=== PATIENT | male | born 1955 | race Caucasian/White ===

== ENCOUNTER 2018-01-06 01:52 | Inpatient (IN) | payer MEDICAID ==
[2018-01-06] VITALS (13 sets, daily range): BP systolic 77–129; BP diastolic 60–74
[~2018-01-06] VITALS: Ht 170.2 cm; Wt 86.8 kg
[~2018-01-06 01:52] MED LIST: AMLO10TA PO; ASPI-611 PO; LISI1TAB13 PO; MECL-111 PO; ONDA8TAB9 PO; PANT-47 PO; SIMV40TA PO; SOTA80TA69 PO; TERA1CAP4 PO; WARF4TAB7 PO
[2018-01-06] MEDS ORDERED: normal saline 1000ML IV soln IVB ONE (02:15)
[2018-01-06] MEDS ORDERED: ondansetron/PF 4mg/2ml inj IV ONE (02:15)
[2018-01-06] MEDS ORDERED: morphine 2 MG/ML inj. syringe IV ONE (02:15)
[2018-01-06] MEDS ORDERED: iohexol 300mg/ml 100ml inj. ONE (02:26)
[2018-01-06 02:30] LABS: BASOPHILS % (AUTO) 0.1 % (0-1); EOSINOPHILS # (AUTO) 0.1 X10'3 (0-0.9); HEMATOCRIT 42.9 % (42.0-52.0); HEMOGLOBIN 14.9 g/dl (14.0-17.9); LYMPHOCYTES # (AUTO) 0.9 X10'3 (1.1-4.8); LYMPHOCYTES % (AUTO) 7.2 % (21-51); MEAN CORPUSCULAR HEMOGLOBIN 28.3 PG (27.0-31.0); MEAN CORPUSCULAR HGB CONC 34.7 % (33.0-36.5); MEAN CORPUSCULAR VOLUME 81.4 FL (78-98); MEAN PLATELET VOLUME 7.3 FL (7.4-10.4); MONOCYTES # (AUTO) 1.3 X10'3 (0-0.9); MONOCYTES % (AUTO) 10.1 % (2-12); NEUTROPHILS # (AUTO) 10.6 X10'3 (1.8-7.7); NEUTROPHILS % (AUTO) 81.6 % (42-75); PLATELET COUNT 249 X10'3 (140-440); RED BLOOD COUNT 5.26 X10'6 (4.70-6.10); WHITE BLOOD COUNT 13.1 X10'3 (4.5-11.0)
[2018-01-06 02:43] LABS: PARTIAL THROMBOPLASTIN TIME 27 SECONDS (22-32); PROTHROMBIN TIME 10.6 SECONDS (9.0-12.0)
[2018-01-06 02:47] LABS: ALANINE AMINOTRANSFERASE 198 U/L (12-78); ALBUMIN 4.1 G/DL (3.4-5.0); ALBUMIN/GLOBULIN RATIO 1.1 (1.1-1.5); ALKALINE PHOSPHATASE 88 IU/L (46-116); ANION GAP 13 (8-16); ASPARTATE AMINO TRANSFERASE 130 U/L (10-37); BILIRUBIN,TOTAL 0.9 MG/DL (0.1-1.0); BLOOD UREA NITROGEN 57 MG/DL (7-18); BUN/CREATININE RATIO 20.2 (5.4-32.0); CALCIUM 8.1 MG/DL (8.5-10.1); CHLORIDE 95 MMOL/L (99-107); CREATININE 2.82 MG/DL (0.60-1.10); GLUCOSE 150 MG/DL (70-104); LIPASE < 50 U/L (73-393); POTASSIUM 3.8 MMOL/L (3.5-5.1); SODIUM 133 MMOL/L (135-145); TOTAL CARBON DIOXIDE 24.6 MMOL/L (24-32); eGFR 23 ML/MIN
[2018-01-06 04:07] LABS: TOTAL CELLS COUNTED 100
[2018-01-06 04:08] LABS: PLATELET ESTIMATE NORMAL
[2018-01-06] MEDS ORDERED: normal saline 1000ml 1,000 ML IV ONE (05:15)
[2018-01-06] MEDS ORDERED: piperacillin/tazo 3.375gm/50ml 50 ML IV SCH ×2 (05:30→08:00)
[2018-01-06] MEDS ORDERED: APIX2.5T PO (05:37)
[2018-01-06] MEDS ORDERED: morphine 2 MG/ML inj. syringe IV PRN ×2 (06:20)
[2018-01-06] MEDS ORDERED: potassium Cl 40MEQ/NS 500ml 500 ML IV PRN ×2 (06:20)
[2018-01-06] MEDS ORDERED: magnesium 2GM in 50ml NS 50 ML IV PRN (06:20)
[2018-01-06] MEDS ORDERED: ondansetron/PF 4mg/2ml inj IV PRN (06:20)
[2018-01-06] MEDS ORDERED: magnesium 4gm in 100ml NS 100 ML IV PRN (06:20)
[2018-01-06] MEDS ORDERED: normal saline 500ml IV soln 500 ML IV ONE (06:35)
[2018-01-06] MEDS: normal saline 1000ml 1,000 ML IV SCH ×2 (06:36→19:40)
[2018-01-06] MEDS: piperacillin-tazo 2.25gm/50ml 50 ML IV SCH ×2 (08:30→16:36)
[2018-01-06] MEDS: pantoprazole 40 MG vial IV SCH (08:30)
[2018-01-06] MEDS ORDERED: CHOL100012 PO (12:28)
[2018-01-06] MEDS: lactobacillus rhamnosus 10,000 MMU CELLS/CAPSULE PO SCH (17:50)
[2018-01-06] MEDS ORDERED: diltiazem 5mg/ml 5ml inj. IV ONE (22:05)
[2018-01-06 23:04] LABS: BASOPHILS % (AUTO) 0.2 % (0-1); EOSINOPHILS # (AUTO) 0.2 X10'3 (0-0.9); EOSINOPHILS % (AUTO) 1.7 % (0-6); HEMATOCRIT 36.4 % (42.0-52.0); HEMOGLOBIN 12.5 g/dl (14.0-17.9); LYMPHOCYTES # (AUTO) 1.5 X10'3 (1.1-4.8); LYMPHOCYTES % (AUTO) 14.3 % (21-51); MEAN CORPUSCULAR HEMOGLOBIN 28.3 PG (27.0-31.0); MEAN CORPUSCULAR HGB CONC 34.3 % (33.0-36.5); MEAN CORPUSCULAR VOLUME 82.5 FL (78-98); MEAN PLATELET VOLUME 7.6 FL (7.4-10.4); MONOCYTES # (AUTO) 1.4 X10'3 (0-0.9); MONOCYTES % (AUTO) 13.6 % (2-12); NEUTROPHILS # (AUTO) 7.4 X10'3 (1.8-7.7); NEUTROPHILS % (AUTO) 70.2 % (42-75); PLATELET COUNT 194 X10'3 (140-440); RED BLOOD COUNT 4.41 X10'6 (4.70-6.10); RED CELL DISTRIBUTION WIDTH 14.1 % (11.5-14.5); WHITE BLOOD COUNT 10.5 X10'3 (4.5-11.0)
[2018-01-06 23:24] LABS: ALANINE AMINOTRANSFERASE 121 U/L (12-78); ALBUMIN 3.1 G/DL (3.4-5.0); ALBUMIN/GLOBULIN RATIO 0.9 (1.1-1.5); ALKALINE PHOSPHATASE 69 IU/L (46-116); ANION GAP 15 (8-16); ASPARTATE AMINO TRANSFERASE 55 U/L (10-37); BILIRUBIN,TOTAL 0.9 MG/DL (0.1-1.0); BLOOD UREA NITROGEN 34 MG/DL (7-18); BUN/CREATININE RATIO 27.4 (5.4-32.0); CALCIUM 7.7 MG/DL (8.5-10.1); CHLORIDE 106 MMOL/L (99-107); CREATININE 1.24 MG/DL (0.60-1.10); GLUCOSE 77 MG/DL (70-104); MAGNESIUM 2.1 MG/DL (1.5-2.4); POTASSIUM 3.6 MMOL/L (3.5-5.1); SODIUM 142 MMOL/L (135-145); TOTAL CARBON DIOXIDE 21.3 MMOL/L (24-32); TOTAL PROTEIN 6.4 G/DL (6.4-8.2); TROPONIN I < 0.04 NG/ML (0.0-0.05); eGFR 59 ML/MIN
[2018-01-06] MEDS ORDERED: albumin (human) 25% 100 ML IV solution IV ONE (23:30)
[2018-01-06] MEDS ORDERED: metoprolol tartrate 1mg/ml inj IV ONE (23:30)
[2018-01-07] VITALS (29 sets, daily range): BP systolic 91–145; BP diastolic 52–91
[2018-01-07] MEDS: piperacillin-tazo 2.25gm/50ml 50 ML IV SCH ×5 (00:29→20:52)
[2018-01-07] MEDS ORDERED: albumin (Human) 5% 250 ML IV solution IV STA (02:14)
[2018-01-07] MEDS ORDERED: diltiazem 5mg/ml 5ml inj. IV ONE (03:15)
[2018-01-07] MEDS ORDERED: dextrose 50%-water 50ml dispensing syringe IV ONE ×2 (04:14→04:15)
[2018-01-07] MEDS ORDERED: ringers solution, lacted 1,000 ML IV SCH (04:59)
[2018-01-07] MEDS ORDERED: morphine 2 MG/ML inj. syringe IV PRN ×2 (05:00)
[2018-01-07] MEDS ORDERED: labetalol 5mg/ml 20ml inj. IV PRN (05:00)
[2018-01-07] MEDS ORDERED: hydrALAZINE 20mg/ml inj. IV PRN (05:00)
[2018-01-07] MEDS ORDERED: fentaNYL/PF 50MCG/1 ML 2ML syringe IV PRN ×2 (05:00)
[2018-01-07] MEDS ORDERED: ondansetron/PF 4mg/2ml inj IV PRN (05:00)
[2018-01-07 05:18] LABS: BASOPHILS % (AUTO) 0.1 % (0-1); EOSINOPHILS # (AUTO) 0.2 X10'3 (0-0.9); EOSINOPHILS % (AUTO) 2.4 % (0-6); HEMATOCRIT 32.3 % (42.0-52.0); HEMOGLOBIN 11.2 g/dl (14.0-17.9); LYMPHOCYTES # (AUTO) 1.3 X10'3 (1.1-4.8); LYMPHOCYTES % (AUTO) 16.1 % (21-51); MEAN CORPUSCULAR HEMOGLOBIN 28.7 PG (27.0-31.0); MEAN CORPUSCULAR HGB CONC 34.6 % (33.0-36.5); MEAN CORPUSCULAR VOLUME 82.8 FL (78-98); MEAN PLATELET VOLUME 7.4 FL (7.4-10.4); MONOCYTES # (AUTO) 0.9 X10'3 (0-0.9); MONOCYTES % (AUTO) 11.1 % (2-12); NEUTROPHILS # (AUTO) 5.6 X10'3 (1.8-7.7); NEUTROPHILS % (AUTO) 70.3 % (42-75); PLATELET COUNT 178 X10'3 (140-440); RED CELL DISTRIBUTION WIDTH 14.2 % (11.5-14.5)
[2018-01-07 05:22] LABS: PARTIAL THROMBOPLASTIN TIME 29 SECONDS (22-32); PROTHROMBIN TIME 10.7 SECONDS (9.0-12.0)
[2018-01-07 05:25] LABS: ALANINE AMINOTRANSFERASE 93 U/L (12-78); ALBUMIN 3.6 G/DL (3.4-5.0); ALBUMIN/GLOBULIN RATIO 1.3 (1.1-1.5); ALKALINE PHOSPHATASE 58 IU/L (46-116); ANION GAP 12 (8-16); ASPARTATE AMINO TRANSFERASE 37 U/L (10-37); BLOOD UREA NITROGEN 29 MG/DL (7-18); CALCIUM 7.8 MG/DL (8.5-10.1); CHLORIDE 104 MMOL/L (99-107); CREATININE 1.26 MG/DL (0.60-1.10); GLUCOSE 180 MG/DL (70-104); POTASSIUM 3.9 MMOL/L (3.5-5.1); SODIUM 140 MMOL/L (135-145); TOTAL PROTEIN 6.4 G/DL (6.4-8.2); eGFR 58 ML/MIN
[2018-01-07] MEDS ORDERED: piperacillin-tazo 2.25gm/50ml 50 ML IV ONE (06:00)
[2018-01-07] MEDS ORDERED: ondansetron/PF 4mg/2ml inj ONE (06:30)
[2018-01-07] MEDS ORDERED: glycopyrrolate 0.2mg/ml inj ONE (06:30)
[2018-01-07] MEDS ORDERED: dexamethasone sod phosphate 4mg/ml inj. ONE (06:30)
[2018-01-07] MEDS ORDERED: neostigmine methylsulfate 1 MG/ML 10ml vial ONE (06:30)
[2018-01-07] MEDS ORDERED: sevoflurane 250ml liquid IH ONE (06:30)
[2018-01-07] MEDS: lactobacillus rhamnosus 10,000 MMU CELLS/CAPSULE PO SCH ×2 (07:30→17:04)
[2018-01-07] MEDS: pantoprazole 40 MG vial IV SCH (08:08)
[2018-01-07] MEDS: normal saline 1000ml 1,000 ML IV SCH ×2 (08:09→20:50)
[2018-01-07] MEDS ORDERED: morphine 4 MG/ML inj SYRINge ONE (08:29)
[2018-01-07] MEDS ORDERED: amiodarone 150mg/dext, iso-os 100 ML IV ONE (11:05)
[2018-01-07] MEDS: morphine/NS 5 mg/ml CADD 50 ML IV SCH ×4 (11:34→23:44)
[2018-01-07] MEDS: amiodarone/D5 360MG/200ML BAG 200 ML IV SCH ×2 (12:10→12:47)
[2018-01-08] VITALS (22 sets, daily range): BP systolic 96–139; BP diastolic 65–90
[2018-01-08] MEDS: piperacillin-tazo 2.25gm/50ml 50 ML IV SCH ×4 (04:21→22:13)
[2018-01-08 06:33] LABS: BASOPHILS % (AUTO) 0.2 % (0-1); EOSINOPHILS # (AUTO) 0.1 X10'3 (0-0.9); HEMATOCRIT 32.6 % (42.0-52.0); LYMPHOCYTES # (AUTO) 1.1 X10'3 (1.1-4.8); LYMPHOCYTES % (AUTO) 12.3 % (21-51); MEAN CORPUSCULAR HGB CONC 33.7 % (33.0-36.5); MEAN CORPUSCULAR VOLUME 83.3 FL (78-98); MEAN PLATELET VOLUME 7.7 FL (7.4-10.4); MONOCYTES # (AUTO) 1.1 X10'3 (0-0.9); MONOCYTES % (AUTO) 12.3 % (2-12); NEUTROPHILS # (AUTO) 6.5 X10'3 (1.8-7.7); NEUTROPHILS % (AUTO) 74.2 % (42-75); PLATELET COUNT 206 X10'3 (140-440); RED BLOOD COUNT 3.91 X10'6 (4.70-6.10); WHITE BLOOD COUNT 8.8 X10'3 (4.5-11.0)
[2018-01-08 06:40] LABS: PARTIAL THROMBOPLASTIN TIME 28 SECONDS (22-32); PROTHROMBIN TIME 10.5 SECONDS (9.0-12.0)
[2018-01-08 06:45] LABS: ALANINE AMINOTRANSFERASE 78 U/L (12-78); ALBUMIN 3.2 G/DL (3.4-5.0); ALKALINE PHOSPHATASE 67 IU/L (46-116); ANION GAP 9 (8-16); ASPARTATE AMINO TRANSFERASE 32 U/L (10-37); BILIRUBIN,TOTAL 0.6 MG/DL (0.1-1.0); BLOOD UREA NITROGEN 17 MG/DL (7-18); BUN/CREATININE RATIO 19.3 (5.4-32.0); CALCIUM 7.9 MG/DL (8.5-10.1); CHLORIDE 105 MMOL/L (99-107); CREATININE 0.88 MG/DL (0.60-1.10); GLUCOSE 125 MG/DL (70-104); POTASSIUM 3.9 MMOL/L (3.5-5.1); SODIUM 139 MMOL/L (135-145); TOTAL CARBON DIOXIDE 25.3 MMOL/L (24-32); TOTAL PROTEIN 6.4 G/DL (6.4-8.2); eGFR 88 ML/MIN
[2018-01-08] MEDS: lactobacillus rhamnosus 10,000 MMU CELLS/CAPSULE PO SCH ×2 (07:28→20:11)
[2018-01-08] MEDS: pantoprazole 40mg Tablet.DR PO SCH (07:28)
[2018-01-08] MEDS: vitamin D (cholecalciferol) 1,000 unit tablet PO SCH (08:00)
[2018-01-08] MEDS ORDERED: amiodarone 200mg tablet PO SCH (09:20)
[2018-01-08] MEDS: amiodarone/D5 360MG/200ML BAG 200 ML IV SCH (09:24)
[2018-01-08] MEDS: lisinopril 20mg tablet PO SCH (09:25)
[2018-01-08] MEDS: HYDROchlorothiazide 25mg tablet PO SCH (09:25)
[2018-01-08] MEDS ORDERED: sotalol 80mg tablet PO ONE (09:30)
[2018-01-08] MEDS ORDERED: sotalol 80mg tablet PO SCH (09:30)
[2018-01-08] MEDS: normal saline 1000ml 1,000 ML IV SCH (12:15)
[2018-01-08] MEDS ORDERED: apixaban 5mg tablet PO SCH (20:00)
[2018-01-08] MEDS: sotalol 80mg tablet PO SCH (20:11)
[2018-01-08] MEDS: morphine/NS 5 mg/ml CADD 50 ML IV SCH ×2 (21:00→23:00)
[2018-01-08] MEDS: amLODIPine 5mg tablet PO SCH (22:14)
[2018-01-08] MEDS: Terazosin 1mg capsule PO SCH (22:14)
[2018-01-09] VITALS: BP 115/86
[2018-01-09] MEDS: morphine/NS 5 mg/ml CADD 50 ML IV SCH ×12 (01:00→23:00)
[2018-01-09] MEDS: normal saline 1000ml 1,000 ML IV SCH ×2 (02:16→14:20)
[2018-01-09] MEDS: piperacillin-tazo 2.25gm/50ml 50 ML IV SCH ×4 (02:49→20:27)
[2018-01-09 06:00] LABS: BASOPHILS % (AUTO) 0.1 % (0-1); EOSINOPHILS # (AUTO) 0.2 X10'3 (0-0.9); EOSINOPHILS % (AUTO) 2.7 % (0-6); HEMATOCRIT 33.1 % (42.0-52.0); HEMOGLOBIN 11.4 g/dl (14.0-17.9); LYMPHOCYTES # (AUTO) 1.5 X10'3 (1.1-4.8); LYMPHOCYTES % (AUTO) 17.3 % (21-51); MEAN CORPUSCULAR HEMOGLOBIN 28.4 PG (27.0-31.0); MEAN CORPUSCULAR HGB CONC 34.4 % (33.0-36.5); MEAN CORPUSCULAR VOLUME 82.5 FL (78-98); MEAN PLATELET VOLUME 7.6 FL (7.4-10.4); MONOCYTES # (AUTO) 1.1 X10'3 (0-0.9); NEUTROPHILS # (AUTO) 5.9 X10'3 (1.8-7.7); NEUTROPHILS % (AUTO) 66.9 % (42-75); PLATELET COUNT 232 X10'3 (140-440); RED BLOOD COUNT 4.02 X10'6 (4.70-6.10); RED CELL DISTRIBUTION WIDTH 13.9 % (11.5-14.5); WHITE BLOOD COUNT 8.8 X10'3 (4.5-11.0)
[2018-01-09 06:50] LABS: PARTIAL THROMBOPLASTIN TIME 28 SECONDS (22-32); PROTHROMBIN TIME 10.2 SECONDS (9.0-12.0)
[2018-01-09 06:57] LABS: ALANINE AMINOTRANSFERASE 74 U/L (12-78); ALBUMIN/GLOBULIN RATIO 0.9 (1.1-1.5); ALKALINE PHOSPHATASE 69 IU/L (46-116); ANION GAP 10 (8-16); ASPARTATE AMINO TRANSFERASE 44 U/L (10-37); BILIRUBIN,TOTAL 0.8 MG/DL (0.1-1.0); BLOOD UREA NITROGEN 13 MG/DL (7-18); BUN/CREATININE RATIO 14.3 (5.4-32.0); CALCIUM 8.3 MG/DL (8.5-10.1); CHLORIDE 102 MMOL/L (99-107); CREATININE 0.91 MG/DL (0.60-1.10); GLUCOSE 89 MG/DL (70-104); POTASSIUM 3.4 MMOL/L (3.5-5.1); SODIUM 138 MMOL/L (135-145); TOTAL CARBON DIOXIDE 25.9 MMOL/L (24-32); TOTAL PROTEIN 6.4 G/DL (6.4-8.2); eGFR 85 ML/MIN
[2018-01-09 07:23] VITALS: BP 114/70
[2018-01-09] MEDS: sotalol 80mg tablet PO SCH ×2 (07:56→20:27)
[2018-01-09] MEDS: lisinopril 20mg tablet PO SCH (08:03)
[2018-01-09] MEDS: HYDROchlorothiazide 25mg tablet PO SCH (08:03)
[2018-01-09] MEDS: pantoprazole 40mg Tablet.DR PO SCH (08:04)
[2018-01-09] MEDS: lactobacillus rhamnosus 10,000 MMU CELLS/CAPSULE PO SCH ×2 (08:04→20:28)
[2018-01-09] MEDS: vitamin D (cholecalciferol) 1,000 unit tablet PO SCH (08:04)
[2018-01-09 11:32] VITALS: BP 107/73
[2018-01-09] MEDS ORDERED: potassium Cl 20 mEq SR tablet PO PRN ×2 (19:00)
[2018-01-09 20:00] VITALS: BP 136/88
[2018-01-09] MEDS: amLODIPine 5mg tablet PO SCH (22:39)
[2018-01-09] MEDS: Terazosin 1mg capsule PO SCH (22:39)
[2018-01-10] VITALS: BP 141/91
[2018-01-10] MEDS: morphine/NS 5 mg/ml CADD 50 ML IV SCH ×12 (01:00→23:00)
[2018-01-10] MEDS: piperacillin-tazo 2.25gm/50ml 50 ML IV SCH ×4 (02:45→21:11)
[2018-01-10] MEDS: normal saline 1000ml 1,000 ML IV SCH ×2 (05:45→17:00)
[2018-01-10 05:51] LABS: BASOPHILS # (AUTO) 0.1 X10'3 (0-0.2); BASOPHILS % (AUTO) 0.8 % (0-1); EOSINOPHILS # (AUTO) 0.3 X10'3 (0-0.9); EOSINOPHILS % (AUTO) 3.7 % (0-6); HEMATOCRIT 36.1 % (42.0-52.0); HEMOGLOBIN 12.2 g/dl (14.0-17.9); LYMPHOCYTES # (AUTO) 1.6 X10'3 (1.1-4.8); LYMPHOCYTES % (AUTO) 16.7 % (21-51); MEAN CORPUSCULAR HEMOGLOBIN 28.2 PG (27.0-31.0); MEAN CORPUSCULAR HGB CONC 33.9 % (33.0-36.5); MEAN CORPUSCULAR VOLUME 83.3 FL (78-98); MEAN PLATELET VOLUME 7.5 FL (7.4-10.4); MONOCYTES % (AUTO) 10.9 % (2-12); NEUTROPHILS # (AUTO) 6.3 X10'3 (1.8-7.7); NEUTROPHILS % (AUTO) 67.9 % (42-75); PLATELET COUNT 257 X10'3 (140-440); RED BLOOD COUNT 4.33 X10'6 (4.70-6.10); RED CELL DISTRIBUTION WIDTH 13.6 % (11.5-14.5); WHITE BLOOD COUNT 9.4 X10'3 (4.5-11.0)
[2018-01-10 06:17] LABS: PARTIAL THROMBOPLASTIN TIME 28 SECONDS (22-32); PROTHROMBIN TIME 10.2 SECONDS (9.0-12.0)
[2018-01-10 06:33] LABS: ALANINE AMINOTRANSFERASE 92 U/L (12-78); ALBUMIN 2.8 G/DL (3.4-5.0); ALBUMIN/GLOBULIN RATIO 0.8 (1.1-1.5); ALKALINE PHOSPHATASE 81 IU/L (46-116); ANION GAP 14 (8-16); ASPARTATE AMINO TRANSFERASE 48 U/L (10-37); BILIRUBIN,TOTAL 0.7 MG/DL (0.1-1.0); BLOOD UREA NITROGEN 13 MG/DL (7-18); BUN/CREATININE RATIO 15.9 (5.4-32.0); CALCIUM 8.5 MG/DL (8.5-10.1); CHLORIDE 102 MMOL/L (99-107); CREATININE 0.82 MG/DL (0.60-1.10); GLUCOSE 89 MG/DL (70-104); POTASSIUM 3.6 MMOL/L (3.5-5.1); SODIUM 140 MMOL/L (135-145); TOTAL CARBON DIOXIDE 24.2 MMOL/L (24-32); TOTAL PROTEIN 6.4 G/DL (6.4-8.2); eGFR > 90 ML/MIN
[2018-01-10 07:05] VITALS: BP 114/78
[2018-01-10] MEDS: sotalol 80mg tablet PO SCH ×2 (07:43→21:12)
[2018-01-10] MEDS: lactobacillus rhamnosus 10,000 MMU CELLS/CAPSULE PO SCH ×2 (07:43→21:12)
[2018-01-10] MEDS: lisinopril 20mg tablet PO SCH (07:44)
[2018-01-10] MEDS: HYDROchlorothiazide 25mg tablet PO SCH (07:44)
[2018-01-10] MEDS: pantoprazole 40mg Tablet.DR PO SCH (07:44)
[2018-01-10] MEDS: vitamin D (cholecalciferol) 1,000 unit tablet PO SCH (07:44)
[2018-01-10 18:30] VITALS: BP 126/76
[2018-01-10 22:20] VITALS: BP 107/73
[2018-01-10] MEDS: Terazosin 1mg capsule PO SCH (22:28)
[2018-01-10] MEDS: amLODIPine 5mg tablet PO SCH (22:30)
[2018-01-10] MEDS: LACTOSE-FREE FOOD (BOOST BREEZE) 237ML PO SCH ×2 (23:19→23:20)
[2018-01-11] VITALS: BP 125/79
[2018-01-11] MEDS: morphine/NS 5 mg/ml CADD 50 ML IV SCH ×12 (01:00→23:00)
[2018-01-11] MEDS: piperacillin-tazo 2.25gm/50ml 50 ML IV SCH ×2 (02:45→07:43)
[2018-01-11 07:04] VITALS: BP 107/70
[2018-01-11 07:56] LABS: BASOPHILS # (AUTO) 0.1 X10'3 (0-0.2); BASOPHILS % (AUTO) 0.5 % (0-1); EOSINOPHILS # (AUTO) 0.4 X10'3 (0-0.9); EOSINOPHILS % (AUTO) 4.5 % (0-6); HEMATOCRIT 35.5 % (42.0-52.0); LYMPHOCYTES # (AUTO) 1.6 X10'3 (1.1-4.8); LYMPHOCYTES % (AUTO) 16.9 % (21-51); MEAN CORPUSCULAR HEMOGLOBIN 28.1 PG (27.0-31.0); MEAN CORPUSCULAR HGB CONC 33.7 % (33.0-36.5); MEAN CORPUSCULAR VOLUME 83.2 FL (78-98); MEAN PLATELET VOLUME 7.3 FL (7.4-10.4); MONOCYTES % (AUTO) 10.4 % (2-12); NEUTROPHILS # (AUTO) 6.5 X10'3 (1.8-7.7); NEUTROPHILS % (AUTO) 67.7 % (42-75); PLATELET COUNT 292 X10'3 (140-440); RED BLOOD COUNT 4.27 X10'6 (4.70-6.10); RED CELL DISTRIBUTION WIDTH 13.6 % (11.5-14.5); WHITE BLOOD COUNT 9.6 X10'3 (4.5-11.0)
[2018-01-11] MEDS: LACTOSE-FREE FOOD (BOOST BREEZE) 237ML PO SCH ×3 (08:00→17:54)
[2018-01-11 08:07] LABS: PARTIAL THROMBOPLASTIN TIME 28 SECONDS (22-32); PROTHROMBIN TIME 10.4 SECONDS (9.0-12.0)
[2018-01-11] MEDS: pantoprazole 40mg Tablet.DR PO SCH (08:12)
[2018-01-11] MEDS: lactobacillus rhamnosus 10,000 MMU CELLS/CAPSULE PO SCH ×2 (08:13→20:14)
[2018-01-11] MEDS: sotalol 80mg tablet PO SCH ×2 (08:13→20:14)
[2018-01-11] MEDS: lisinopril 20mg tablet PO SCH (08:14)
[2018-01-11] MEDS: HYDROchlorothiazide 25mg tablet PO SCH (08:14)
[2018-01-11] MEDS: vitamin D (cholecalciferol) 1,000 unit tablet PO SCH (08:14)
[2018-01-11] MEDS: normal saline 1000ml 1,000 ML IV SCH ×2 (08:15→17:54)
[2018-01-11 08:19] LABS: ALANINE AMINOTRANSFERASE 89 U/L (12-78); ALBUMIN 2.7 G/DL (3.4-5.0); ALBUMIN/GLOBULIN RATIO 0.7 (1.1-1.5); ALKALINE PHOSPHATASE 93 IU/L (46-116); ANION GAP 12 (8-16); ASPARTATE AMINO TRANSFERASE 38 U/L (10-37); BILIRUBIN,TOTAL 0.7 MG/DL (0.1-1.0); BLOOD UREA NITROGEN 12 MG/DL (7-18); BUN/CREATININE RATIO 14.3 (5.4-32.0); CALCIUM 8.5 MG/DL (8.5-10.1); CHLORIDE 102 MMOL/L (99-107); CREATININE 0.84 MG/DL (0.60-1.10); GLUCOSE 81 MG/DL (70-104); POTASSIUM 3.9 MMOL/L (3.5-5.1); SODIUM 139 MMOL/L (135-145); TOTAL CARBON DIOXIDE 24.9 MMOL/L (24-32); TOTAL PROTEIN 6.4 G/DL (6.4-8.2); eGFR > 90 ML/MIN
[2018-01-11 11:43] VITALS: BP 112/72
[2018-01-11] MEDS: Terazosin 1mg capsule PO SCH (20:57)
[2018-01-11] MEDS: amLODIPine 5mg tablet PO SCH (20:57)
[2018-01-12] VITALS: BP 142/84
[2018-01-12] MEDS: morphine/NS 5 mg/ml CADD 50 ML IV SCH ×12 (01:00→23:00)
[2018-01-12 02:50] VITALS: BP 116/74
[2018-01-12 06:34] LABS: BASOPHILS % (AUTO) 0.4 % (0-1); EOSINOPHILS # (AUTO) 0.4 X10'3 (0-0.9); EOSINOPHILS % (AUTO) 3.7 % (0-6); HEMOGLOBIN 12.2 g/dl (14.0-17.9); LYMPHOCYTES # (AUTO) 1.6 X10'3 (1.1-4.8); LYMPHOCYTES % (AUTO) 16.5 % (21-51); MEAN CORPUSCULAR HEMOGLOBIN 28.5 PG (27.0-31.0); MEAN CORPUSCULAR VOLUME 81.6 FL (78-98); MEAN PLATELET VOLUME 6.9 FL (7.4-10.4); MONOCYTES # (AUTO) 0.9 X10'3 (0-0.9); MONOCYTES % (AUTO) 9.4 % (2-12); NEUTROPHILS # (AUTO) 6.9 X10'3 (1.8-7.7); PLATELET COUNT 309 X10'3 (140-440); RED BLOOD COUNT 4.29 X10'6 (4.70-6.10); RED CELL DISTRIBUTION WIDTH 13.6 % (11.5-14.5); WHITE BLOOD COUNT 9.8 X10'3 (4.5-11.0)
[2018-01-12 06:39] LABS: PARTIAL THROMBOPLASTIN TIME 29 SECONDS (22-32); PROTHROMBIN TIME 10.7 SECONDS (9.0-12.0)
[2018-01-12 06:51] LABS: ALANINE AMINOTRANSFERASE 71 U/L (12-78); ALBUMIN 2.8 G/DL (3.4-5.0); ALBUMIN/GLOBULIN RATIO 0.7 (1.1-1.5); ALKALINE PHOSPHATASE 96 IU/L (46-116); ANION GAP 9 (8-16); ASPARTATE AMINO TRANSFERASE 30 U/L (10-37); BILIRUBIN,TOTAL 0.5 MG/DL (0.1-1.0); BLOOD UREA NITROGEN 10 MG/DL (7-18); CALCIUM 8.7 MG/DL (8.5-10.1); CHLORIDE 103 MMOL/L (99-107); CREATININE 0.83 MG/DL (0.60-1.10); GLUCOSE 95 MG/DL (70-104); POTASSIUM 3.9 MMOL/L (3.5-5.1); SODIUM 139 MMOL/L (135-145); TOTAL CARBON DIOXIDE 26.9 MMOL/L (24-32); TOTAL PROTEIN 6.6 G/DL (6.4-8.2); eGFR > 90 ML/MIN
[2018-01-12 07:00] VITALS: BP 119/81
[2018-01-12] MEDS: lisinopril 20mg tablet PO SCH (07:34)
[2018-01-12] MEDS: pantoprazole 40mg Tablet.DR PO SCH (07:34)
[2018-01-12] MEDS: sotalol 80mg tablet PO SCH ×2 (07:34→20:54)
[2018-01-12] MEDS: lactobacillus rhamnosus 10,000 MMU CELLS/CAPSULE PO SCH ×2 (07:34→20:55)
[2018-01-12] MEDS: vitamin D (cholecalciferol) 1,000 unit tablet PO SCH (07:34)
[2018-01-12] MEDS: HYDROchlorothiazide 25mg tablet PO SCH (07:34)
[2018-01-12] MEDS: LACTOSE-FREE FOOD (BOOST BREEZE) 237ML PO SCH ×3 (07:39→18:01)
[2018-01-12] MEDS: normal saline 1000ml 1,000 ML IV SCH (10:42)
[2018-01-12 11:00] VITALS: BP 114/75
[2018-01-12 18:00] VITALS: BP 117/73
[2018-01-12] MEDS: Terazosin 1mg capsule PO SCH (20:55)
[2018-01-12] MEDS: amLODIPine 5mg tablet PO SCH (20:56)
[2018-01-13] VITALS: BP 123/70
[2018-01-13] MEDS: morphine/NS 5 mg/ml CADD 50 ML IV SCH ×12 (01:00→23:00)
[2018-01-13] MEDS: normal saline 1000ml 1,000 ML IV SCH (03:11)
[2018-01-13 06:21] LABS: BASOPHILS % (AUTO) 0.3 % (0-1); EOSINOPHILS # (AUTO) 0.4 X10'3 (0-0.9); EOSINOPHILS % (AUTO) 3.8 % (0-6); HEMATOCRIT 34.7 % (42.0-52.0); HEMOGLOBIN 12.1 g/dl (14.0-17.9); LYMPHOCYTES % (AUTO) 21.2 % (21-51); MEAN CORPUSCULAR HEMOGLOBIN 28.5 PG (27.0-31.0); MEAN CORPUSCULAR HGB CONC 34.9 % (33.0-36.5); MEAN CORPUSCULAR VOLUME 81.6 FL (78-98); MEAN PLATELET VOLUME 6.9 FL (7.4-10.4); NEUTROPHILS # (AUTO) 5.9 X10'3 (1.8-7.7); NEUTROPHILS % (AUTO) 63.7 % (42-75); PLATELET COUNT 332 X10'3 (140-440); RED BLOOD COUNT 4.25 X10'6 (4.70-6.10); RED CELL DISTRIBUTION WIDTH 13.8 % (11.5-14.5); WHITE BLOOD COUNT 9.2 X10'3 (4.5-11.0)
[2018-01-13 06:23] LABS: PARTIAL THROMBOPLASTIN TIME 29 SECONDS (22-32); PROTHROMBIN TIME 10.6 SECONDS (9.0-12.0)
[2018-01-13 06:45] LABS: ALANINE AMINOTRANSFERASE 66 U/L (12-78); ALBUMIN 2.8 G/DL (3.4-5.0); ALBUMIN/GLOBULIN RATIO 0.7 (1.1-1.5); ALKALINE PHOSPHATASE 91 IU/L (46-116); ANION GAP 11 (8-16); ASPARTATE AMINO TRANSFERASE 24 U/L (10-37); BILIRUBIN,TOTAL 0.4 MG/DL (0.1-1.0); BLOOD UREA NITROGEN 11 MG/DL (7-18); BUN/CREATININE RATIO 12.8 (5.4-32.0); CALCIUM 8.5 MG/DL (8.5-10.1); CHLORIDE 103 MMOL/L (99-107); CREATININE 0.86 MG/DL (0.60-1.10); GLUCOSE 118 MG/DL (70-104); POTASSIUM 3.6 MMOL/L (3.5-5.1); SODIUM 139 MMOL/L (135-145); TOTAL CARBON DIOXIDE 25.2 MMOL/L (24-32); TOTAL PROTEIN 6.6 G/DL (6.4-8.2); eGFR > 90 ML/MIN
[2018-01-13 07:30] VITALS: BP 112/72
[2018-01-13] MEDS: vitamin D (cholecalciferol) 1,000 unit tablet PO SCH (08:55)
[2018-01-13] MEDS: sotalol 80mg tablet PO SCH ×2 (08:55→21:10)
[2018-01-13] MEDS: lactobacillus rhamnosus 10,000 MMU CELLS/CAPSULE PO SCH ×2 (08:55→21:12)
[2018-01-13] MEDS: pantoprazole 40mg Tablet.DR PO SCH (08:55)
[2018-01-13] MEDS: lisinopril 20mg tablet PO SCH (08:56)
[2018-01-13] MEDS: LACTOSE-FREE FOOD (BOOST BREEZE) 237ML PO SCH ×3 (08:56→18:00)
[2018-01-13] MEDS: HYDROchlorothiazide 12.5mg capsule PO SCH (08:56)
[2018-01-13 11:00] VITALS: BP 114/73
[2018-01-13 18:00] VITALS: BP 109/76
[2018-01-13] MEDS: Terazosin 1mg capsule PO SCH (21:00)
[2018-01-13] MEDS: amLODIPine 5mg tablet PO SCH (21:12)
[2018-01-14] VITALS: BP 97/69
[2018-01-14] MEDS: morphine/NS 5 mg/ml CADD 50 ML IV SCH ×6 (01:00→11:00)
[2018-01-14 06:00] VITALS: BP 108/71
[2018-01-14 06:04] LABS: BASOPHILS % (AUTO) 0.4 % (0-1); EOSINOPHILS # (AUTO) 0.4 X10'3 (0-0.9); EOSINOPHILS % (AUTO) 4.5 % (0-6); HEMATOCRIT 34.4 % (42.0-52.0); HEMOGLOBIN 11.8 g/dl (14.0-17.9); LYMPHOCYTES # (AUTO) 1.9 X10'3 (1.1-4.8); LYMPHOCYTES % (AUTO) 20.2 % (21-51); MEAN CORPUSCULAR HEMOGLOBIN 28.4 PG (27.0-31.0); MEAN CORPUSCULAR HGB CONC 34.4 % (33.0-36.5); MEAN CORPUSCULAR VOLUME 82.7 FL (78-98); MONOCYTES # (AUTO) 1.1 X10'3 (0-0.9); MONOCYTES % (AUTO) 11.5 % (2-12); NEUTROPHILS % (AUTO) 63.4 % (42-75); PLATELET COUNT 318 X10'3 (140-440); RED BLOOD COUNT 4.15 X10'6 (4.70-6.10); RED CELL DISTRIBUTION WIDTH 13.7 % (11.5-14.5); WHITE BLOOD COUNT 9.5 X10'3 (4.5-11.0)
[2018-01-14 06:14] LABS: PARTIAL THROMBOPLASTIN TIME 29 SECONDS (22-32); PROTHROMBIN TIME 10.4 SECONDS (9.0-12.0)
[2018-01-14 06:23] LABS: ALANINE AMINOTRANSFERASE 48 U/L (12-78); ALBUMIN 2.8 G/DL (3.4-5.0); ALBUMIN/GLOBULIN RATIO 0.7 (1.1-1.5); ALKALINE PHOSPHATASE 88 IU/L (46-116); ANION GAP 10 (8-16); ASPARTATE AMINO TRANSFERASE 19 U/L (10-37); BILIRUBIN,TOTAL 0.4 MG/DL (0.1-1.0); BLOOD UREA NITROGEN 14 MG/DL (7-18); BUN/CREATININE RATIO 17.3 (5.4-32.0); CALCIUM 8.6 MG/DL (8.5-10.1); CHLORIDE 103 MMOL/L (99-107); CREATININE 0.81 MG/DL (0.60-1.10); GLUCOSE 92 MG/DL (70-104); POTASSIUM 3.9 MMOL/L (3.5-5.1); SODIUM 138 MMOL/L (135-145); TOTAL CARBON DIOXIDE 25.4 MMOL/L (24-32); TOTAL PROTEIN 6.6 G/DL (6.4-8.2); eGFR > 90 ML/MIN
[2018-01-14] MEDS: lactobacillus rhamnosus 10,000 MMU CELLS/CAPSULE PO SCH (08:11)
[2018-01-14] MEDS: HYDROchlorothiazide 12.5mg capsule PO SCH (08:11)
[2018-01-14] MEDS: lisinopril 20mg tablet PO SCH (08:11)
[2018-01-14] MEDS: pantoprazole 40mg Tablet.DR PO SCH (08:11)
[2018-01-14] MEDS: vitamin D (cholecalciferol) 1,000 unit tablet PO SCH (08:11)
[2018-01-14] MEDS: sotalol 80mg tablet PO SCH (08:12)
[2018-01-14] MEDS: LACTOSE-FREE FOOD (BOOST BREEZE) 237ML PO SCH (08:12)
[2018-01-14 12:00] VITALS: BP 106/72
[2018-01-14] MEDS: normal saline 1000ml 1,000 ML IV SCH (12:13)
[2018-01-14] MEDS ORDERED: HYDROcodone/acetaminophen 10/325mg tab PO PRN (13:10)
[2018-01-14] MEDS ORDERED: CADD PCA waste documentation MC SCH (13:25)
== END 2018-01-14 16:10 | DRG 227 ==
LOC: ER 01:52 → ED HOLD 06:20 → EDBEDREQ 09:59 → ICU 2S 10:43 → MED 3N 01-08 20:40
PROVIDERS: ADMIT Internal Medicine Critical Care Medicine; ATTEND Internal Medicine Critical Care Medicine
PROC: 0WQF0ZZ Repair Abdominal Wall, Open Approach (ICD-10-PCS; principal; 2018-01-07 06:30)
DX: K43.0 Incisional hernia with obstruction, without gangrene (principal); N17.9 Acute kidney failure, unspecified; J18.9 Pneumonia, unspecified organism; K55.9 Vascular disorder of intestine, unspecified; I95.9 Hypotension, unspecified; I10 Essential (primary) hypertension; R00.0 Tachycardia, unspecified; K21.9 Gastro-esophageal reflux disease without esophagitis; I48.91 Unspecified atrial fibrillation; Z86.73 Personal history of transient ischemic attack (TIA), and cerebral infarction without residual deficits; Z79.899 Other long term (current) drug therapy
CPT/HCPCS: 36415; 71045; 74176; 80053; 82948; 83605; 83690; 83735; 84145; 84484; 85025; 85610; 85730; 86885; 86900; 86901; 87040; 87502; 87503; 93005; 94760; 96361; 96365; 96375; 97110; 97116; 97161; 97530; 99285; A6213; A6255; A7000; C1758; C9113; J0282; J1100; J2270; J2405; J2543; J2710; J3490; J7030; J7120; P9045; P9047; Q9967

== ENCOUNTER 2018-03-10 05:37 | Inpatient (IN) | payer MEDICAID ==
[2018-03-09 16:52] LABS: BASOPHILS % (AUTO) 0.5 % (0-1); EOSINOPHILS # (AUTO) 0.3 X10'3 (0-0.9); LYMPHOCYTES # (AUTO) 1.5 X10'3 (1.1-4.8); LYMPHOCYTES % (AUTO) 17.3 % (21-51); MEAN CORPUSCULAR HEMOGLOBIN 27.9 PG (27.0-31.0); MEAN CORPUSCULAR HGB CONC 34.6 % (33.0-36.5); MEAN CORPUSCULAR VOLUME 80.7 FL (78-98); MEAN PLATELET VOLUME 7.7 FL (7.4-10.4); MONOCYTES # (AUTO) 0.8 X10'3 (0-0.9); NEUTROPHILS # (AUTO) 6.2 X10'3 (1.8-7.7); NEUTROPHILS % (AUTO) 70.2 % (42-75); PRE OP HEMATOCRIT 37.8 % (42.0-52.0); PRE OP HEMOGLOBIN 13.1 g/dL (14.0-17.9); PRE OP PLATELET COUNT 310 X10'3 (140-440); RED BLOOD COUNT 4.69 X10'6 (4.70-6.10); RED CELL DISTRIBUTION WIDTH 14.4 % (11.5-14.5)
[2018-03-09 17:01] LABS: CLARITY,URINE CLEAR (Clear); COLOR,URINE YELLOW (Yellow); GLUCOSE, URINE NEGATIVE (Neg); KETONES,URINE NEGATIVE (Neg); LEUKOCYTE ESTERASE ,URINE TRACE (Neg); NITRITES, URINE NEGATIVE (Neg); OCCULT BLOOD,URINE NEGATIVE (Neg); PH,URINE 5.5 (4.8-8.0); PROTEIN,URINE NEGATIVE (Neg); UROBILINOGEN,URINE 0.2 E.U/dL (0.2-1.0)
[2018-03-09 17:04] LABS: UA COLLECTION TYPE CLN CATCH MIDSTREAM
[2018-03-09 17:14] LABS: ALBUMIN/GLOBULIN RATIO 1.1 (1.1-1.5); ALKALINE PHOSPHATASE 92 IU/L (46-116); BLOOD UREA NITROGEN 17 MG/DL (7-18); BUN/CREATININE RATIO 16.8 (5.4-32.0); CALCIUM 9.1 MG/DL (8.5-10.1); CHLORIDE 104 MMOL/L (99-107); CREATININE 1.01 MG/DL (0.60-1.10); PRE OP ALT 29 U/L (30-65); PRE OP ANION GAP 11 (8-16); PRE OP AST 24 U/L (10-37); PRE OP BILIRUB, TOTAL 0.4 MG/DL (0.0-1.0); PRE OP GLUCOSE 99 MG/DL (70-104); PRE OP SODIUM 139 MMOL/L (135-145); TOTAL CARBON DIOXIDE 23.6 MMOL/L (24-32); TOTAL PROTEIN 7.6 G/DL (6.4-8.2); eGFR 75 ML/MIN
[2018-03-09 17:26] LABS: BACTERIA,URINE NONE SEEN /HPF (Neg); RBC,URINE NONE SEEN /HPF (0-2); SQUAMOUS EPITHELIAL CELL,UR FEW /LPF (FEW); WBC,URINE 0-4 /HPF (0-4)
[~2018-03-10] VITALS: Ht 170.2 cm; Wt 83.0 kg
[~2018-03-10 05:37] MED LIST changes: +APIX2.5T PO; -ASPI-611 PO; +CHOL100012 PO; +DOCUMENT DATE & TIME OF BETA-BLOCKER PO ONE; +HYDR12.5 PO; -LISI1TAB13 PO; +LISI40TA4 PO; -MECL-111 PO; +MINO100C2 PO; +OMEP40CA37 PO; -ONDA8TAB9 PO; -PANT-47 PO; -WARF4TAB7 PO; +famotidine 20mg tablet PO ONE
[2018-03-10] MEDS ORDERED: LIDOcaine 1% (10mg/ml) 2ml vial ONE (06:01)
[2018-03-10] MEDS: ringers solution, lacted 1,000 ML IV SCH (06:18)
[2018-03-10] MEDS ORDERED: BUPIVAcaine/PF 2.5 mg/ml (0.25%) 30ml vial ONE (06:48)
[2018-03-10] MEDS ORDERED: ceFAZolin 1000mg inj ONE (06:48)
[2018-03-10 06:51] VITALS: BP 131/91
[2018-03-10 06:55] VITALS: BP 131/91
[2018-03-10] MEDS ORDERED: acetaminophen 325mg tablet PO PRN ×2 (09:00)
[2018-03-10] MEDS ORDERED: mag hydrox/Alum hydrox/simeth 30ml oral suspension PO PRN (09:00)
[2018-03-10] MEDS: HYDROchlorothiazide 12.5mg capsule PO SCH (09:05)
[2018-03-10 11:30] VITALS: BP 127/70
[2018-03-10 19:30] VITALS: BP 115/69
[2018-03-10] MEDS: sotalol 80mg tablet PO SCH (20:13)
[2018-03-10] MEDS ORDERED: temazepam 15mg capsule PO PRN (21:00)
[2018-03-10 21:40] VITALS: BP 119/68
[2018-03-10] MEDS: atorvastatin 20mg tablet PO SCH (21:47)
[2018-03-10] MEDS: Terazosin 1mg capsule PO SCH (21:47)
[2018-03-10] MEDS: amLODIPine 5mg tablet PO SCH (21:48)
[2018-03-11] VITALS (21 sets, daily range): BP systolic 105–143; BP diastolic 0–88
[2018-03-11 05:11] LABS: BASOPHILS % (AUTO) 0.6 % (0-1); EOSINOPHILS # (AUTO) 0.2 X10'3 (0-0.9); EOSINOPHILS % (AUTO) 3.3 % (0-6); HEMOGLOBIN 11.9 g/dl (14.0-17.9); LYMPHOCYTES % (AUTO) 29.6 % (21-51); MEAN CORPUSCULAR HEMOGLOBIN 27.7 PG (27.0-31.0); MEAN CORPUSCULAR VOLUME 81.3 FL (78-98); MEAN PLATELET VOLUME 7.2 FL (7.4-10.4); MONOCYTES # (AUTO) 0.7 X10'3 (0-0.9); MONOCYTES % (AUTO) 10.2 % (2-12); NEUTROPHILS # (AUTO) 3.8 X10'3 (1.8-7.7); NEUTROPHILS % (AUTO) 56.3 % (42-75); PLATELET COUNT 247 X10'3 (140-440); RED CELL DISTRIBUTION WIDTH 14.7 % (11.5-14.5); WHITE BLOOD COUNT 6.8 X10'3 (4.5-11.0)
[2018-03-11 05:22] LABS: ALBUMIN 3.4 G/DL (3.4-5.0); ANION GAP 9 (8-16); BLOOD UREA NITROGEN 14 MG/DL (7-18); BUN/CREATININE RATIO 15.1 (5.4-32.0); CALCIUM 8.9 MG/DL (8.5-10.1); CHLORIDE 108 MMOL/L (99-107); CREATININE 0.93 MG/DL (0.60-1.10); GLUCOSE 99 MG/DL (70-104); POTASSIUM 3.9 MMOL/L (3.5-5.1); SODIUM 143 MMOL/L (135-145); TOTAL CARBON DIOXIDE 25.8 MMOL/L (24-32); eGFR 83 ML/MIN
[2018-03-11] MEDS ORDERED: ceFOXitin 2 GM ADDvantage bag 100 ML IV ONE (05:30)
[2018-03-11 06:45] LABS: PARTIAL THROMBOPLASTIN TIME 25 SECONDS (22-32); PROTHROMBIN TIME 10.4 SECONDS (9.0-12.0)
[2018-03-11] MEDS ORDERED: pantoprazole 40mg Tablet.DR PO PRN (07:30)
[2018-03-11] MEDS: vitamin D (cholecalciferol) 1,000 unit tablet PO SCH (07:30)
[2018-03-11] MEDS: sotalol 80mg tablet PO SCH ×2 (07:47→20:00)
[2018-03-11] MEDS: ringers solution, lacted 1,000 ML IV SCH (07:49)
[2018-03-11] MEDS: lisinopril 20mg tablet PO SCH (08:00)
[2018-03-11] MEDS ORDERED: MINOCYCLINE 50 MG PO PRN (08:00)
[2018-03-11] MEDS: HYDROchlorothiazide 12.5mg capsule PO SCH (08:00)
[2018-03-11] MEDS ORDERED: cefazolin/dext.iso 2gm/50ml 50 ML IV ONE (09:10)
[2018-03-11] MEDS ORDERED: ceFAZolin 1000mg inj ONE (10:07)
[2018-03-11] MEDS ORDERED: BUPIVAcaine/PF 2.5 mg/ml (0.25%) 30ml vial ONE (10:08)
[2018-03-11] MEDS ORDERED: ringers solution, lacted 1,000 ML IV SCH (10:14)
[2018-03-11] MEDS ORDERED: ondansetron/PF 4mg/2ml inj IV PRN (10:15)
[2018-03-11] MEDS ORDERED: proCHLORperazine 10 MG/2 ml inj IV PRN (10:15)
[2018-03-11] MEDS ORDERED: meperidine/PF 50mg/ml syringe IV PRN ×2 (10:15)
[2018-03-11] MEDS ORDERED: morphine 4 MG/ML inj SYRINge IV PRN ×3 (10:15→15:05)
[2018-03-11] MEDS ORDERED: midazolam 2 mg/2 ml injection ONE (12:25)
[2018-03-11] MEDS ORDERED: LIDOcaine 1%/PF (10mg/ml) 5ml vial ONE (12:26)
[2018-03-11] MEDS ORDERED: fentaNYL /PF 50mcg/ml 5ml ampule ONE (12:26)
[2018-03-11] MEDS ORDERED: rocuronium 10mg/ml inj IV ONE (12:26)
[2018-03-11] MEDS ORDERED: propofol inj 20 ML IV ONE (12:26)
[2018-03-11] MEDS ORDERED: glycopyrrolate 0.2mg/ml inj ONE (13:17)
[2018-03-11] MEDS: meperidine/PF 50mg/ml syringe IV PRN ×2 (13:29→13:33)
[2018-03-11] MEDS: normal saline 1000ml 1,000 ML IV SCH (17:09)
[2018-03-11] MEDS ORDERED: sevoflurane 250ml liquid IH ONE (17:15)
[2018-03-11] MEDS ORDERED: neostigmine methylsulfate 1 MG/ML 10ml vial ONE (17:15)
[2018-03-11] MEDS: atorvastatin 20mg tablet PO SCH (20:00)
[2018-03-11] MEDS: amLODIPine 5mg tablet PO SCH (20:01)
[2018-03-11] MEDS: Terazosin 1mg capsule PO SCH (20:01)
[2018-03-11] MEDS: HYDROcodone/acetaminophen 5mg/325mg tablet PO PRN (20:02)
[2018-03-12] VITALS: BP 109/74
[2018-03-12] MEDS: HYDROcodone/acetaminophen 5mg/325mg tablet PO PRN ×3 (03:00→20:06)
[2018-03-12] MEDS: normal saline 1000ml 1,000 ML IV SCH ×3 (04:33→23:25)
[2018-03-12 05:27] LABS: BASOPHILS % (AUTO) 0 % (0-1); EOSINOPHILS % (AUTO) 0 % (0-6); HEMATOCRIT 35.2 % (42.0-52.0); HEMOGLOBIN 12.1 g/dl (14.0-17.9); LYMPHOCYTES # (AUTO) 0.7 X10'3 (1.1-4.8); LYMPHOCYTES % (AUTO) 5.5 % (21-51); MEAN CORPUSCULAR HEMOGLOBIN 28.2 PG (27.0-31.0); MEAN CORPUSCULAR HGB CONC 34.4 % (33.0-36.5); MEAN CORPUSCULAR VOLUME 81.8 FL (78-98); MEAN PLATELET VOLUME 7.5 FL (7.4-10.4); MONOCYTES # (AUTO) 0.7 X10'3 (0-0.9); MONOCYTES % (AUTO) 5.1 % (2-12); NEUTROPHILS # (AUTO) 12.1 X10'3 (1.8-7.7); NEUTROPHILS % (AUTO) 89.4 % (42-75); PLATELET COUNT 247 X10'3 (140-440); WHITE BLOOD COUNT 13.5 X10'3 (4.5-11.0)
[2018-03-12 05:52] LABS: ALBUMIN 3.3 G/DL (3.4-5.0); ANION GAP 13 (8-16); BLOOD UREA NITROGEN 17 MG/DL (7-18); BUN/CREATININE RATIO 17.9 (5.4-32.0); CALCIUM 8.7 MG/DL (8.5-10.1); CHLORIDE 104 MMOL/L (99-107); CREATININE 0.95 MG/DL (0.60-1.10); GLUCOSE 133 MG/DL (70-104); POTASSIUM 4.1 MMOL/L (3.5-5.1); SODIUM 140 MMOL/L (135-145); TOTAL CARBON DIOXIDE 23.3 MMOL/L (24-32); eGFR 81 ML/MIN
[2018-03-12] MEDS: HYDROchlorothiazide 12.5mg capsule PO SCH (07:43)
[2018-03-12] MEDS: lisinopril 20mg tablet PO SCH (07:43)
[2018-03-12] MEDS: sotalol 80mg tablet PO SCH ×2 (07:43→20:05)
[2018-03-12] MEDS: vitamin D (cholecalciferol) 1,000 unit tablet PO SCH (07:43)
[2018-03-12 07:53] VITALS: BP 107/65
[2018-03-12] MEDS: piperacillin/tazo 3.375gm/50ml 50 ML IV SCH ×3 (09:54→23:20)
[2018-03-12 12:06] VITALS: BP 118/78
[2018-03-12 20:00] VITALS: BP 122/85
[2018-03-12] MEDS: apixaban 5mg tablet PO SCH (20:05)
[2018-03-12] MEDS: amLODIPine 5mg tablet PO SCH (20:08)
[2018-03-12] MEDS: atorvastatin 20mg tablet PO SCH (20:09)
[2018-03-12] MEDS: Terazosin 1mg capsule PO SCH (20:09)
[2018-03-13] VITALS: BP 97/61
[2018-03-13] MEDS: HYDROcodone/acetaminophen 5mg/325mg tablet PO PRN ×2 (04:59→15:11)
[2018-03-13 05:15] LABS: BASOPHILS % (AUTO) 0.3 % (0-1); EOSINOPHILS # (AUTO) 0.1 X10'3 (0-0.9); EOSINOPHILS % (AUTO) 1.6 % (0-6); HEMATOCRIT 34.9 % (42.0-52.0); HEMOGLOBIN 11.8 g/dl (14.0-17.9); LYMPHOCYTES # (AUTO) 1.5 X10'3 (1.1-4.8); LYMPHOCYTES % (AUTO) 17.1 % (21-51); MEAN CORPUSCULAR HEMOGLOBIN 27.7 PG (27.0-31.0); MEAN CORPUSCULAR HGB CONC 33.7 % (33.0-36.5); MEAN CORPUSCULAR VOLUME 82.1 FL (78-98); MEAN PLATELET VOLUME 7.5 FL (7.4-10.4); MONOCYTES # (AUTO) 0.9 X10'3 (0-0.9); NEUTROPHILS # (AUTO) 6.4 X10'3 (1.8-7.7); PLATELET COUNT 226 X10'3 (140-440); RED BLOOD COUNT 4.25 X10'6 (4.70-6.10); RED CELL DISTRIBUTION WIDTH 15.1 % (11.5-14.5)
[2018-03-13 06:07] LABS: ALBUMIN 3.3 G/DL (3.4-5.0); ANION GAP 11 (8-16); BLOOD UREA NITROGEN 16 MG/DL (7-18); BUN/CREATININE RATIO 15.4 (5.4-32.0); CALCIUM 8.7 MG/DL (8.5-10.1); CHLORIDE 103 MMOL/L (99-107); CREATININE 1.04 MG/DL (0.60-1.10); GLUCOSE 103 MG/DL (70-104); POTASSIUM 3.5 MMOL/L (3.5-5.1); SODIUM 139 MMOL/L (135-145); TOTAL CARBON DIOXIDE 24.8 MMOL/L (24-32); eGFR 73 ML/MIN
[2018-03-13 07:47] VITALS: BP 98/53
[2018-03-13] MEDS: HYDROchlorothiazide 12.5mg capsule PO SCH (08:15)
[2018-03-13] MEDS: apixaban 5mg tablet PO SCH ×2 (08:15→19:52)
[2018-03-13] MEDS: vitamin D (cholecalciferol) 1,000 unit tablet PO SCH (08:15)
[2018-03-13] MEDS: sotalol 80mg tablet PO SCH ×2 (08:15→19:52)
[2018-03-13] MEDS: lisinopril 20mg tablet PO SCH (08:15)
[2018-03-13] MEDS: piperacillin/tazo 3.375gm/50ml 50 ML IV SCH ×3 (08:15→23:44)
[2018-03-13 11:46] VITALS: BP 93/63
[2018-03-13] MEDS: normal saline 1000ml 1,000 ML IV SCH (15:06)
[2018-03-13 20:00] VITALS: BP 126/71
[2018-03-13] MEDS: baclofen 10mg tablet PO PRN (20:01)
[2018-03-13] MEDS: amLODIPine 5mg tablet PO SCH (20:38)
[2018-03-13] MEDS: atorvastatin 20mg tablet PO SCH (20:38)
[2018-03-13] MEDS: Terazosin 1mg capsule PO SCH (20:38)
[2018-03-14] VITALS: BP 110/63
[2018-03-14 05:13] LABS: BASOPHILS % (AUTO) 0.4 % (0-1); EOSINOPHILS # (AUTO) 0.3 X10'3 (0-0.9); EOSINOPHILS % (AUTO) 2.8 % (0-6); HEMOGLOBIN 11.8 g/dl (14.0-17.9); LYMPHOCYTES # (AUTO) 1.3 X10'3 (1.1-4.8); LYMPHOCYTES % (AUTO) 14.6 % (21-51); MEAN CORPUSCULAR HEMOGLOBIN 27.6 PG (27.0-31.0); MEAN CORPUSCULAR HGB CONC 33.6 % (33.0-36.5); MEAN CORPUSCULAR VOLUME 82.1 FL (78-98); MEAN PLATELET VOLUME 7.4 FL (7.4-10.4); MONOCYTES # (AUTO) 1.1 X10'3 (0-0.9); MONOCYTES % (AUTO) 11.8 % (2-12); NEUTROPHILS # (AUTO) 6.4 X10'3 (1.8-7.7); NEUTROPHILS % (AUTO) 70.4 % (42-75); PLATELET COUNT 227 X10'3 (140-440); RED BLOOD COUNT 4.26 X10'6 (4.70-6.10); RED CELL DISTRIBUTION WIDTH 14.7 % (11.5-14.5); WHITE BLOOD COUNT 9.1 X10'3 (4.5-11.0)
[2018-03-14 05:30] LABS: ALBUMIN 3.1 G/DL (3.4-5.0); ANION GAP 12 (8-16); BLOOD UREA NITROGEN 17 MG/DL (7-18); BUN/CREATININE RATIO 18.3 (5.4-32.0); CALCIUM 8.7 MG/DL (8.5-10.1); CHLORIDE 103 MMOL/L (99-107); CREATININE 0.93 MG/DL (0.60-1.10); GLUCOSE 100 MG/DL (70-104); POTASSIUM 3.6 MMOL/L (3.5-5.1); SODIUM 138 MMOL/L (135-145); TOTAL CARBON DIOXIDE 23.4 MMOL/L (24-32); eGFR 83 ML/MIN
[2018-03-14] MEDS: normal saline 1000ml 1,000 ML IV SCH ×2 (06:28→21:02)
[2018-03-14 07:35] VITALS: BP 108/64
[2018-03-14] MEDS: sotalol 80mg tablet PO SCH ×2 (08:32→20:50)
[2018-03-14] MEDS: apixaban 5mg tablet PO SCH ×2 (08:32→20:50)
[2018-03-14] MEDS: vitamin D (cholecalciferol) 1,000 unit tablet PO SCH (08:32)
[2018-03-14] MEDS: lisinopril 20mg tablet PO SCH (08:32)
[2018-03-14] MEDS: HYDROchlorothiazide 12.5mg capsule PO SCH (08:32)
[2018-03-14] MEDS: piperacillin/tazo 3.375gm/50ml 50 ML IV SCH ×3 (08:33→23:29)
[2018-03-14 12:00] VITALS: BP 104/67
[2018-03-14] MEDS: ondansetron/PF 4mg/2ml inj IV PRN ×2 (16:33→21:45)
[2018-03-14 20:00] VITALS: BP 123/84
[2018-03-14] MEDS: amLODIPine 5mg tablet PO SCH (20:50)
[2018-03-14] MEDS: atorvastatin 20mg tablet PO SCH (20:50)
[2018-03-14] MEDS: Terazosin 1mg capsule PO SCH (20:50)
[2018-03-14] MEDS: baclofen 10mg tablet PO PRN (23:31)
[2018-03-15] VITALS: BP 112/69
[2018-03-15] MEDS: ondansetron/PF 4mg/2ml inj IV PRN (03:18)
[2018-03-15 05:25] LABS: BASOPHILS % (AUTO) 0.3 % (0-1); EOSINOPHILS # (AUTO) 0.3 X10'3 (0-0.9); EOSINOPHILS % (AUTO) 2.4 % (0-6); HEMATOCRIT 35.9 % (42.0-52.0); HEMOGLOBIN 12.3 g/dl (14.0-17.9); LYMPHOCYTES # (AUTO) 1.1 X10'3 (1.1-4.8); LYMPHOCYTES % (AUTO) 10.5 % (21-51); MEAN CORPUSCULAR HEMOGLOBIN 28.2 PG (27.0-31.0); MEAN CORPUSCULAR HGB CONC 34.3 % (33.0-36.5); MEAN CORPUSCULAR VOLUME 82.2 FL (78-98); MEAN PLATELET VOLUME 7.5 FL (7.4-10.4); MONOCYTES # (AUTO) 0.9 X10'3 (0-0.9); MONOCYTES % (AUTO) 8.5 % (2-12); NEUTROPHILS # (AUTO) 8.3 X10'3 (1.8-7.7); NEUTROPHILS % (AUTO) 78.3 % (42-75); PLATELET COUNT 271 X10'3 (140-440); RED BLOOD COUNT 4.36 X10'6 (4.70-6.10); RED CELL DISTRIBUTION WIDTH 14.7 % (11.5-14.5); WHITE BLOOD COUNT 10.7 X10'3 (4.5-11.0)
[2018-03-15 05:44] LABS: ALBUMIN 3.2 G/DL (3.4-5.0); ANION GAP 12 (8-16); BLOOD UREA NITROGEN 19 MG/DL (7-18); BUN/CREATININE RATIO 19.4 (5.4-32.0); CALCIUM 8.9 MG/DL (8.5-10.1); CHLORIDE 102 MMOL/L (99-107); CREATININE 0.98 MG/DL (0.60-1.10); GLUCOSE 95 MG/DL (70-104); POTASSIUM 3.7 MMOL/L (3.5-5.1); SODIUM 138 MMOL/L (135-145); TOTAL CARBON DIOXIDE 24.4 MMOL/L (24-32); eGFR 78 ML/MIN
[2018-03-15 07:28] VITALS: BP 105/65
[2018-03-15] MEDS: piperacillin/tazo 3.375gm/50ml 50 ML IV SCH (07:48)
[2018-03-15] MEDS: apixaban 5mg tablet PO SCH (07:48)
[2018-03-15] MEDS: HYDROchlorothiazide 12.5mg capsule PO SCH (07:48)
[2018-03-15] MEDS: sotalol 80mg tablet PO SCH (07:48)
[2018-03-15] MEDS: vitamin D (cholecalciferol) 1,000 unit tablet PO SCH (07:48)
[2018-03-15] MEDS: lisinopril 20mg tablet PO SCH (07:48)
[2018-03-15 11:20] VITALS: BP 113/75
[2018-03-15] MEDS: magnesium hydroxide 30ml (MOM) UD suspension PO PRN ×2 (12:34→12:35)
[2018-03-15] MEDS: normal saline 1000ml 1,000 ML IV SCH (13:16)
[2018-03-15 15:46] VITALS: BP 96/58
[2018-03-15] MEDS ORDERED: Protein Shake (high protein) 240ml (8oz) cup PO SCH (18:00)
== END 2018-03-15 17:10 | DRG 227 ==
LOC: PAS 05:37 → SUR 3N 09:00
PROVIDERS: ADMIT Hospitalist; ATTEND Internal Medicine
PROC: 0WUF4JZ Supplement Abdominal Wall with Synthetic Substitute, Percutaneous Endoscopic Approach (ICD-10-PCS; principal; 2018-03-11 12:20)
DX: K43.2 Incisional hernia without obstruction or gangrene (principal); I48.2 Chronic atrial fibrillation; I10 Essential (primary) hypertension; G80.9 Cerebral palsy, unspecified; K21.9 Gastro-esophageal reflux disease without esophagitis; M19.90 Unspecified osteoarthritis, unspecified site; E78.00 Pure hypercholesterolemia, unspecified; K66.0 Peritoneal adhesions (postprocedural) (postinfection); Z79.899 Other long term (current) drug therapy; Z86.73 Personal history of transient ischemic attack (TIA), and cerebral infarction without residual deficits
CPT/HCPCS: 36415; 80048; 80053; 81001; 83605; 85025; 85610; 85730; 87040; 87088; 93005; 97116; 97162; 97530; A7000; C1713; C1758; C1781; J0690; J0694; J2001; J2175; J2250; J2270; J2405; J2543; J2704; J2710; J3010; J3490; J7030; J7120